=== PATIENT | female | born 1985 | race Caucasian/White ===

== ENCOUNTER → 2018-11-12 10:11 | Outpatient (CLI) | payer BC, SELFPAY | PROVIDERS: Family Provider Family Medicine; PCP Family Medicine; Visit Provider Physician Assistant | DX: J02.9 Acute pharyngitis, unspecified (principal) ==

== ENCOUNTER → 2018-12-09 11:19 | Outpatient (CLI) | payer BC, SELFPAY | PROVIDERS: Family Provider Family Medicine; PCP Family Medicine; Visit Provider Physician Assistant | DX: J02.9 Acute pharyngitis, unspecified (principal) | CPT/HCPCS: 87070 ==

== ENCOUNTER → 2019-12-07 12:42 | Outpatient (CLI) | payer BC, SELFPAY | PROVIDERS: Family Provider Family Medicine; PCP Family Medicine; Visit Provider Physician Assistant | DX: R30.0 Dysuria (principal) ==

== ENCOUNTER → 2020-05-20 12:10 | Outpatient (CLI) | payer BC, SELFPAY ==
--- NOTE | 2020-05-20 12:11 | DI.US.S_ITS ---
PROCEDURE: US PELVIC COMPLETE INDICATIONS: ABNORMAL UTERINE BLEEDING TECHNIQUE: Real-time scanning was performed of the pelvic organs, with image documentation. Additional endovaginal scanning was necessary due to incomplete visualization of the adnexal and endometrial structures by transabdominal scanning. COMPARISON: [facility], , PELVIC COMPLETE, 08/28/2016, 19:35. FINDINGS: Transabdominal scanning: Limited scanning through the kidneys shows no hydronephrosis. No pathologic free abdominal or pelvic fluid. Endovaginal scanning: Uterus: The anteverted uterus measures 10.1 x 5.1 x 5.7 cm. The endometrium measures 13 mm in combined thickness. Uterine echotexture is heterogeneous without focal uterine mass or fibroids. Multiple nabothian cysts are present within the cervix. Ovaries: Right ovary is not visualized on today's study. Left ovary measures 3.8 x 2.7 x 2.8 cm. There is a 2.4 cm physiologic cyst. No suspicious ovarian or adnexal mass lesions. IMPRESSION: 1. Pelvic ultrasound that acute sonographic abnormalities. 2. Heterogeneous uterine echotexture without focal masses or fibroids. Endometrial thickness measures within normal limits. 3. Nonvisualization of the right ovary. Unremarkable appearance of the left ovary/adnexa. Dictated by: Harsh Haas M.D. on 05/20/2020 at 13:58 Approved by: Harsh Haas M.D. on 05/20/2020 at 14:08
[2020-05-20 14:48] LABS: Add Manual Diff / Slide Review NO; Basophils Absolute Auto 0 /uL (0-100); Basophils Percent Auto 0.5 % (0-2); Eosinophils Absolute Auto 100 /uL (0-450); Eosinophils Percent Auto 1.4 % (2-4); Hematocrit 36.5 % (36-46); Hemoglobin 12.2 g/dL (12.0-16.0); Lymphocytes Absolute Auto 2800 /uL (1100-4500); Lymphocytes Percent Auto 32.6 % (25-40); Mean Corpuscular HGB Conc 33.4 % (30-36); Mean Corpuscular Hemoglobin 27.1 PG (26-34); Mean Corpuscular Volume 81.2 fL (80-100); Monocytes Absolute Auto 600 /uL (0-900); Monocytes Percent Auto 6.6 % (3-14); Neutrophils Absolute Auto 5100 /uL (1500-7000); Neutrophils Percent Auto 58.9 % (50-75); Platelet Count 352 X10^3/uL (150-400); Red Blood Cell Count 4.49 X10^6/uL (4.0-5.2); Red Cell Distribution Width 13.5 % (11.6-14.8); White Blood Cell Count 8.7 X10^3/uL (4.5-11.0)
[2020-05-20 16:06] LABS: Alanine Aminotransferase 28 IU/L (<35); Albumin 3.8 g/dL (3.5-5.0); Albumin Globulin Ratio 1.3 (1.0-2.8); Alkaline Phosphatase 98 U/L (38-126); Aspartate Aminotransferase 26 IU/L (14-36); Bilirubin Total 0.2 mg/dL (0.2-1.3); Blood Urea Nitrogen 12 mg/dL (7-17); Calcium 9.6 mg/dL (8.4-10.2); Carbon Dioxide 27 mmol/L (22-32); Chloride 105 mmol/L (98-107); Cholesterol 144 mg/dL (140-199); Estimated Glomerular Filt Rate > 60.0 mL/min (>60); Glucose 118 mg/dL (70-100); HDL Cholesterol 33 mg/dL (40-60); HEMOLYSIS < 15 (0-50); LDL Cholesterol Calculated 42 mg/dL (<100); Potassium 4.2 mmol/L (3.4-5.1); Sodium 137 mmol/L (137-145); Total Protein 6.8 g/dL (6.3-8.2); Triglycerides 343 mg/dL (35-150)
[2020-05-20 17:20] LABS: TSH w/ Reflex to FT4 1.49 uIU/mL (0.47-4.68)
== END ==
PROVIDERS: Family Provider Family Medicine; PCP Family Medicine; Referring Provider Family Medicine; Visit Provider Family Medicine
DX: N92.6 Irregular menstruation, unspecified (principal); N93.9 Abnormal uterine and vaginal bleeding, unspecified
CPT/HCPCS: 36415; 76830; 76856; 80053; 80061; 84443; 85025

== ENCOUNTER → 2021-01-30 09:02 | Outpatient (CLI) | payer BC, SELFPAY | PROVIDERS: Family Provider Family Medicine; PCP Family Medicine; Visit Provider Physician Assistant | DX: N34.3 Urethral syndrome, unspecified (principal) | CPT/HCPCS: 87077; 87086; 87186 ==

== ENCOUNTER → 2021-02-06 17:09 | Outpatient (CLI) | payer BC, SELFPAY ==
[2021-02-06 17:57] LABS: Appearance Urine UA CLEAR; Bilirubin Urine UA NEGATIVE (NEGATIVE); Color Urine UA YELLOW; Glucose Urine UA NEGATIVE (Negative); Ketones Urine UA NEGATIVE (NEGATIVE); Leukocyte Esterase Urine UA NEGATIVE (NEGATIVE); Nitrite Urine UA NEGATIVE (Negative); Occult Blood Urine UA TRACE-LYSED (Negative); Protein Urine UA NEGATIVE (Negative); Specific Gravity Urine UA 1.025 (1.000-1.035); Urobilinogen Urine UA 0.2 E.U./dL (0.2)
== END ==
PROVIDERS: Family Provider Family Medicine; PCP Family Medicine; Referring Provider Physician Assistant; Visit Provider Physician Assistant
DX: N30.01 Acute cystitis with hematuria (principal)
CPT/HCPCS: 81003

== ENCOUNTER → 2021-02-10 12:24 | Outpatient (CLI) | payer BC, SELFPAY ==
--- NOTE | 2021-02-10 12:30 | DI.CT.S_ITS ---
PROCEDURE: CT KIDNEY URETER BLADDER (KUB) INDICATIONS: suspect kidney stones with h/o kidney stones TECHNIQUE: Noncontrast 5 mm thick sections acquired from the diaphragms to the symphysis. 5 mm thick coronal and sagittal reformats were then performed. For radiation dose reduction, the following was used: automated exposure control, adjustment of mA and/or kV according to patient size. COMPARISON: [facility], CT, KIDNEY/ URETER/BLADDER, 11/27/2016, 13:34. FINDINGS: Image quality: Excellent. Lung bases: Lung bases are clear. Heart size is normal. Solid organs: Liver: The liver has no mass or intrahepatic biliary ductal dilatation. the liver demonstrates low density consistent with hepatic steatosis. Biliary: Status post cholecystectomy. Pancreas: The pancreas has no mass or ductal dilatation. There is no surrounding inflammation. Spleen: Normal size. There are no masses. Adrenals: No hypertrophy or nodules. Kidneys: No obstructive calculus or hydronephrosis. A nonobstructive calculus is seen in the left kidney inferior pole. No solid mass. No cystic mass. Peritoneum and bowel: The distal esophagus and stomach are normal. The small bowel has a normal caliber and appearance. The terminal ileum is normal. The large bowel has a normal caliber and appearance. The appendix is normal. No free fluid or air. Nodes and vessels: No retroperitoneal or mesenteric adenopathy by size criteria. Aorta and inferior vena cava are normal in size. Miscellaneous: No abdominal wall mass or hernia. PELVIS: Genitourinary: The bladder has no wall thickening or mass. No bladder calcifications. Miscellaneous: No inguinal hernias or adenopathy. Bones: No suspicious bony lesions. No vertebral body compression fractures. IMPRESSION: 1. No acute abnormality of the abdomen or pelvis. 2. No obstructive nephroureteral calculi. 3. Hepatic steatosis. Dictated by: Kel Ennis M.D. on 02/10/2021 at 13:34 Approved by: Kel Ennis M.D. on 02/10/2021 at 13:43
== END ==
PROVIDERS: Family Provider Family Medicine; PCP Family Medicine; Referring Provider Family Medicine; Visit Provider Family Medicine
DX: N20.0 Calculus of kidney (principal); Z87.442 Personal history of urinary calculi
CPT/HCPCS: 74176

== ENCOUNTER → 2021-02-18 12:44 | Outpatient (CLI) | payer BC, SELFPAY | PROVIDERS: Family Provider Family Medicine; PCP Family Medicine; Visit Provider Physician Assistant | DX: J02.9 Acute pharyngitis, unspecified (principal) | CPT/HCPCS: 87070 ==

== ENCOUNTER → 2021-09-30 09:21 | Outpatient (CLI) | payer BC, SELFPAY | PROVIDERS: Family Provider Family Medicine; PCP Family Medicine; Visit Provider Physician Assistant | DX: N34.3 Urethral syndrome, unspecified (principal) | CPT/HCPCS: 87077; 87086; 87186 ==

== ENCOUNTER 2022-12-26 09:55 | Emergency (ER) | payer BC, SELFPAY ==
[2022-12-26 10:27] VITALS: BP 167/105; PULSE 84; RESP 18; TEMP 36.7; O2SAT 98; BMI 44.2
--- NOTE | 2022-12-26 10:36 | DI.RAD.S_ITS ---
PROCEDURE: XR CHEST 1V INDICATIONS: chest pain TECHNIQUE: One view of the chest was acquired. COMPARISON: None. FINDINGS: Surgical changes and devices: None. Lungs and pleura: Lungs are clear. No pleural effusions or pneumothorax. Mediastinum: Mediastinal contours appear normal. Heart size is normal. Bones and chest wall: No suspicious bony lesions. Overlying soft tissues appear unremarkable. IMPRESSION: No acute cardiopulmonary pathology. Dictated by: Wali Randolph M.D. on 12/26/2022 at 10:52 Approved by: Wali Randolph M.D. on 12/26/2022 at 10:52
[2022-12-26 11:17] LABS: Add Manual Diff / Slide Review NO; Basophils Absolute Auto 100 /uL (0-100); Basophils Percent Auto 0.7 % (0-2); Eosinophils Absolute Auto 200 /uL (0-450); Eosinophils Percent Auto 1.6 % (2-4); Hematocrit 40.5 % (36-46); Lymphocytes Absolute Auto 2600 /uL (1100-4500); Lymphocytes Percent Auto 25.7 % (25-40); Mean Corpuscular HGB Conc 34.5 % (30-36); Mean Corpuscular Hemoglobin 27.9 PG (26-34); Mean Corpuscular Volume 80.8 fL (80-100); Monocytes Absolute Auto 500 /uL (0-900); Monocytes Percent Auto 4.7 % (3-14); Neutrophils Absolute Auto 6900 /uL (1500-7000); Neutrophils Percent Auto 67.3 % (50-75); Platelet Count 391 X10^3/uL (150-400); Red Blood Cell Count 5.02 X10^6/uL (4.0-5.2); Red Cell Distribution Width 13.5 % (11.6-14.8); White Blood Cell Count 10.2 X10^3/uL (4.5-11.0)
[2022-12-26 11:29] LABS: Alanine Aminotransferase 42 IU/L (<35); Albumin 4.2 g/dL (3.5-5.0); Albumin Globulin Ratio 1.1 (1.0-2.8); Alkaline Phosphatase 115 U/L (38-126); Aspartate Aminotransferase 30 IU/L (14-36); Bilirubin Total 0.3 mg/dL (0.2-1.3); Blood Urea Nitrogen 9 mg/dL (7-17); Calcium 9.1 mg/dL (8.4-10.2); Carbon Dioxide 28 mmol/L (22-32); Chloride 101 mmol/L (98-107); Creatine Kinase 64 U/L (30-135); Estimated Glomerular Filt Rate > 60 mL/min (>60); Globulin 3.9 g/dL (1.7-4.1); Glucose 106 mg/dL (70-100); HEMOLYSIS < 15 (0-50); Lipase 73 U/L (23-300); Magnesium 2.1 mg/dL (1.6-2.3); Potassium 3.9 mmol/L (3.4-5.1); Sodium 138 mmol/L (137-145); Total Protein 8.1 g/dL (6.3-8.2)
[2022-12-26 11:30] LABS: INR 1.1 (0.9-1.3); Prothrombin Time 12.1 SECONDS (10.1-12.7)
[2022-12-26 11:33] LABS: PTT Partial Thromboplastin Tim 35 SECONDS (26-36)
[2022-12-26 11:41] LABS: Troponin I < 0.012 ng/mL (0.01-0.034)
[2022-12-26 12:50] VITALS: BP 180/111; PULSE 81; RESP 16; O2SAT 97
[2022-12-26 13:49] VITALS: PULSE 81; RESP 15; O2SAT 99
--- NOTE | 2022-12-26 13:58 | PC.NURSE ---
pt states she has been having migraines for about one year and pain that started 7 years ago in her arms, holding her baby that traveled up her arm and began to be severe neck pain one year ago. she was seeing a chiropractor yesterday and her BP was 160/102 and she was advised that if her BP did not come down she should go to the ER. pt states she has been having palpitation for one week and feeling funny since her last migraine on Saturday.
[2022-12-26 14:00] VITALS: BP 148/91; PULSE 80; RESP 17; O2SAT 100
[2022-12-26 14:30] VITALS: BP 158/94; PULSE 78; RESP 12; O2SAT 98
[2022-12-26] MEDS: KETOROLAC 10 MG TABLET PO (14:45)
[2022-12-26] MEDS: ACETAMINOPHEN 325 MG TABLET 975 MG PO (14:45)
[2022-12-26 15:00] VITALS: BP 166/96; PULSE 82; RESP 15; O2SAT 98
--- NOTE | 2022-12-26 15:15 | ED_ITS ---
HPI - General Adult <Deborah Greene, [facility] - Last Filed: 12/26/22 15:21> General Chief complaint: Hypertension Stated complaint: high BP T-7 Time Seen by Provider: 12/26/22 14:09 Source: patient Mode of arrival: Ambulatory History of Present Illness HPI narrative: This is a 37-year-old female presents to the emergency department complaining history of 1 year of chronic neck pain and left arm pain and states that she has left-sided neck, shoulder and muscular tension which has given her a headache for the last 3 days. She states that this flares up occasionally for her, she states that she is taking Tylenol ibuprofen, has used Flexeril in the past and it has been helpful for her. She states that she is had tendinitis of her wrist and arm from holding her baby in the past and this was exacerbated with neck pain. She denies any recent trauma, denies history of IV drug use, denies dizziness, lightheadedness, weakness, urinary continence retention, urinary frequency or urgency, mobility changes, sensation deficit or other. She complains of left trapezius tenderness and strain. Denies any numbness or tingling, denies any shooting pain Related Data Previous Rx's Medication Instructions Recorded phenazopyridine 100 mg tablet 100 mg PO TID PRN pain #10 tabs 08/10/20 fluconazole 100 mg tablet See Rx Instructions PO DAILY #15 02/17/21 tabs tamsulosin 0.4 mg capsule See Rx Instructions .Route 02/27/21 .COMPLEX #20 caps metformin 1,000 mg tablet See Rx Instructions .Route 10/27/21 .COMPLEX #180 tabs cyclobenzaprine 5 mg tablet See Rx Instructions .Route 07/26/22 .COMPLEX #30 tabs cyclobenzaprine 5 mg tablet 5 mg PO BID #14 tabs 12/26/22 lidocaine 5 % topical patch 1 patch topical DAILY PRN pain #30 12/26/22 (Lidoderm) ea propranolol 10 mg tablet 10 mg PO TID PRN high blood 12/26/22 pressure/stress #30 tabs Allergies Allergy/AdvReac Type Severity Reaction Status Date / Time morphine [MORPHINE] Allergy Severe SOB Verified 08/26/22 16:02 Sulfa (Sulfonamide Allergy Mild Hives Verified 08/26/22 16:02 Antibiotics) [SULFA (SULFONAMIDE ANTIBIOTICS)] Review of Systems <YVONNE Mojica - Last Filed: 12/26/22 15:21> Review of Systems ROS Unobtainable: All systems reviewed & are unremarkable except as noted in HPI and below Patient History <YVONNE Mojica - Last Filed: 12/26/22 15:21> Medical History Abnormal uterine bleeding Adenomyosis Ductal candidiasis of breast Irregular menses Irritable bowel syndrome with constipation Kidney stone Renal colic on left side UTI (urinary tract infection) Surgical History History of hysterectomy for benign disease (~10/2020) History of third molar tooth extraction History of tonsillectomy Status post delivery (10/22/11) Status post delivery (10/07/09) Status post delivery (08/01/15) Status post knee surgery Family History Grandmother Gallbladder attack Mother Gallbladder attack Social History Smoking Status: Never smoker Smoking Status: Never smoker alcohol intake frequency: holidays/special occasions only Substance Use Type: does not use Exam <YVONNE Mojica - Last Filed: 12/26/22 15:21> Initial Vital Signs Initial Vital Signs: Vital Signs Temperature 98.1 F 12/26/22 10:27 Pulse Rate 84 12/26/22 10:27 Respiratory Rate 18 12/26/22 10:27 Blood Pressure 167/105 H 12/26/22 10:27 Pulse Oximetry 98 12/26/22 10:27 Oxygen Delivery Method 12/26/22 10:27 <Farooq Cardoso MD - Last Filed: 01/01/23 02:08> Initial Vital Signs Initial Vital Signs: Vital Signs Temperature 98.1 F 12/26/22 10:27 Pulse Rate 84 12/26/22 10:27 Respiratory Rate 18 12/26/22 10:27 Blood Pressure 167/105 H 12/26/22 10:27 Pulse Oximetry 98 12/26/22 10:27 Oxygen Delivery Method 12/26/22 10:27 Course <YVONNE Mojica - Last Filed: 12/26/22 15:21> Orders Ordered: Discontinued Medications Acetaminophen (Acetaminophen 325 Mg Tablet) 975 mg PO NOW ONE Stop: 12/26/22 14:34 Last Admin: 12/26/22 14:45 Dose: 975 mg Documented By: NR Cyclobenzaprine HCl (Cyclobenzaprine 10 Mg Tablet) 5 mg PO NOW ONE Stop: 12/26/22 14:34 Last Admin: 12/26/22 14:49 Dose: Not Given Documented By: NR Ketorolac Tromethamine (Ketorolac 10 Mg Tablet) 10 mg PO NOW ONE Stop: 12/26/22 14:34 Last Admin: 12/26/22 14:45 Dose: 10 mg Documented By: NR Lidocaine (Lidocaine Patch 1 Each Adh..Patch) 1 each TOP NOW ONE Stop: 12/26/22 14:34 Last Admin: 12/26/22 14:49 Dose: Not Given Documented By: NR Ondansetron HCl (Ondansetron 4 Mg Odt) 4 mg SL NOW ONE Stop: 12/26/22 14:34 Last Admin: 12/26/22 14:49 Dose: Not Given Documented By: NR Vital Signs Vital signs: Vital Signs - 8 hr 12/26/22 10:27 12/26/22 12:50 12/26/22 13:49 Temperature 98.1 F Pulse Rate 84 81 81 Respiratory Rate 18 16 15 Blood Pressure 167/105 H 180/111 H Pulse Oximetry 98 97 99 Oxygen Delivery Method Room Air Room Air 12/26/22 14:00 12/26/22 14:00 12/26/22 14:30 Temperature Pulse Rate 80 Respiratory Rate 17 Blood Pressure 148/91 H 158/94 H Pulse Oximetry 100 Oxygen Delivery Method 12/26/22 14:30 Temperature Pulse Rate 78 Respiratory Rate 12 Blood Pressure Pulse Oximetry 98 Oxygen Delivery Method <Farooq Cardoso MD - Last Filed: 01/01/23 02:08> Orders Ordered: Discontinued Medications Acetaminophen (Acetaminophen 325 Mg Tablet) 975 mg PO NOW ONE Stop: 12/26/22 14:34 Last Admin: 12/26/22 14:45 Dose: 975 mg Documented By: NR Cyclobenzaprine HCl (Cyclobenzaprine 10 Mg Tablet) 5 mg PO NOW ONE Stop: 12/26/22 14:34 Last Admin: 12/26/22 14:49 Dose: Not Given Documented By: NR Ketorolac Tromethamine (Ketorolac 10 Mg Tablet) 10 mg PO NOW ONE Stop: 12/26/22 14:34 Last Admin: 12/26/22 14:45 Dose: 10 mg Documented By: NR Lidocaine (Lidocaine Patch 1 Each Adh..Patch) 1 each TOP NOW ONE Stop: 12/26/22 14:34 Last Admin: 12/26/22 14:49 Dose: Not Given Documented By: NR Ondansetron HCl (Ondansetron 4 Mg Odt) 4 mg SL NOW ONE Stop: 12/26/22 14:34 Last Admin: 12/26/22 14:49 Dose: Not Given Documented By: NR Vital Signs Vital signs: Vital Signs - 8 hr 12/26/22 10:27 12/26/22 12:50 12/26/22 13:49 Temperature 98.1 F Pulse Rate 84 81 81 Respiratory Rate 18 16 15 Blood Pressure 167/105 H 180/111 H Pulse Oximetry 98 97 99 Oxygen Delivery Method Room Air Room Air 12/26/22 14:00 12/26/22 14:00 12/26/22 14:30 Temperature Pulse Rate 80 Respiratory Rate 17 Blood Pressure 148/91 H 158/94 H Pulse Oximetry 100 Oxygen Delivery Method 12/26/22 14:30 Temperature Pulse Rate 78 Respiratory Rate 12 Blood Pressure Pulse Oximetry 98 Oxygen Delivery Method Medical Decision Making <AALIYAH MojicaP - Last Filed: 12/26/22 15:21> Lab Data 12/26/22 11:00 12/26/22 11:00 Labs: Lab Results 12/26/22 12/26/22 12/26/22 Range/Units 11:00 11:00 11:00 WBC 10.2 (4.5-11.0) X10^3/uL RBC 5.02 (4.0-5.2) X10^6/uL Hgb 14.0 (12.0-16.0) g/dL Hct 40.5 (36-46) % MCV 80.8 (80-100) fL MCH 27.9 (26-34) PG MCHC 34.5 (30-36) % RDW 13.5 (11.6-14.8) % Plt Count 391 (150-400) X10^3/uL Neut % (Auto) 67.3 (50-75) % Lymph % (Auto) 25.7 (25-40) % [place] % (Auto) 4.7 (3-14) % Eos % (Auto) 1.6 L (2-4) % Baso % (Auto) 0.7 (0-2) % Neut # (Auto) 6900 (7398-0604) /uL Lymph # (Auto) 2600 (2886-9157) /uL [place] # (Auto) 500 (0-900) /uL Eos # (Auto) 200 (0-450) /uL Baso # (Auto) 100 (0-100) /uL PT 12.1 (10.1-12.7) SECONDS INR 1.1 (0.9-1.3) APTT 35 (26-36) SECONDS Sodium 138 (137-145) mmol/L Potassium 3.9 (3.4-5.1) mmol/L Chloride 101 (98-107) mmol/L Carbon Dioxide 28 (22-32) mmol/L BUN 9 (7-17) mg/dL Creatinine 0.60 (0.52-1.04) mg/dL Estimated GFR > 60 (>60) mL/min BUN/Creatinine Ratio 15.0 (6-22) Glucose 106 H (70-100) mg/dL Calcium 9.1 (8.4-10.2) mg/dL Magnesium 2.1 (1.6-2.3) mg/dL Total Bilirubin 0.3 (0.2-1.3) mg/dL AST 30 (14-36) IU/L ALT 42 H (<35) IU/L Alkaline Phosphatase 115 (38-126) U/L Total Creatine Kinase 64 (30-135) U/L CK-MB (CK-2) TNP CK-MB (CK-2) Rel Index TNP Troponin I < 0.012 (0.01-0.034) ng/mL Total Protein 8.1 (6.3-8.2) g/dL Albumin 4.2 (3.5-5.0) g/dL Globulin 3.9 (1.7-4.1) g/dL Albumin/Globulin Ratio 1.1 (1.0-2.8) Lipase 73 (23-300) U/L MDM Narrative Medical decision making narrative: Chief Complaint: Neck pain and shoulder pain This is a 37-year-old female presents to the emergency department complaining history of 1 year of chronic neck pain and left arm pain and states that she has left-sided neck, shoulder and muscular tension which has given her a headache for the last 3 Differential diagnoses include but are not limited to: Degenerative disc disease, muscle strain/sprain, disc herniation/injury, tendinitis, tension headache, epidural hematoma I have reviewed the patient's vital signs and nursing notes as well as prior records if available. Pertinent lab findings reviewed: CMP and CBC are unremarkable today Pertinent Imaging reviewed: No imaging indicated patient is without trauma On exam of this patient, her symptoms are mild, her pain was rated at a 6 and she had palpable tension and tenderness to the left trapezius. No cervical tenderness to palpation, she is without radiculopathy symptoms. Discussed treatment plans and follow-up, she has not seen her PCP for her symptoms, states that she struggled with depression, states she is not taking anything for her mood, states that her pain has been getting worse and coming and going over the last year. She is without recent trauma or any trauma contributing to this. She was at her chiropractor yesterday with elevated blood pressure and told that she needs to follow-up on this so she came in today for this. Today her initial blood pressure was 180 systolic however on repeat it was 148 systolic. There is a mild component of hypertension that is still present, repeat blood pressure is 158 systolic. For this I prescribed for her propanolol tongue mg as needed as patient states that this is likely secondary to stress and I think her elevated BP today is related to pain. She declined wanting a steroid, she may benefit from injectable steroids in the future however I recommend that she follow-up with her PCP for referral to physical therapy and to discuss her mood, blood pressure and chronic neck pain. She was given a prescription muscle relaxers, encouraged to use Tylenol and ibuprofen otherwise for her pain and will follow up accordingly. She denies any urinary symptoms Patient's symptoms improved over duration of stay with above-stated therapies. Social considerations that may affect disposition: none Questions are addressed and there is agreement with the plan and for follow-up. Patient is appropriate for outpatient management. MIPS: This encounter doesn't have any diagnosis' associated with MIPS criteria. <Farooq Cardoso MD - Last Filed: 01/01/23 02:08> Lab Data Labs: Lab Results 12/26/22 12/26/22 12/26/22 Range/Units 11:00 11:00 11:00 WBC 10.2 (4.5-11.0) X10^3/uL RBC 5.02 (4.0-5.2) X10^6/uL Hgb 14.0 (12.0-16.0) g/dL Hct 40.5 (36-46) % MCV 80.8 (80-100) fL MCH 27.9 (26-34) PG MCHC 34.5 (30-36) % RDW 13.5 (11.6-14.8) % Plt Count 391 (150-400) X10^3/uL Neut % (Auto) 67.3 (50-75) % Lymph % (Auto) 25.7 (25-40) % [place] % (Auto) 4.7 (3-14) % Eos % (Auto) 1.6 L (2-4) % Baso % (Auto) 0.7 (0-2) % Neut # (Auto) 6900 (7126-3100) /uL Lymph # (Auto) 2600 (3533-1562) /uL [place] # (Auto) 500 (0-900) /uL Eos # (Auto) 200 (0-450) /uL Baso # (Auto) 100 (0-100) /uL PT 12.1 (10.1-12.7) SECONDS INR 1.1 (0.9-1.3) APTT 35 (26-36) SECONDS Sodium 138 (137-145) mmol/L Potassium 3.9 (3.4-5.1) mmol/L Chloride 101 (98-107) mmol/L Carbon Dioxide 28 (22-32) mmol/L BUN 9 (7-17) mg/dL Creatinine 0.60 (0.52-1.04) mg/dL Estimated GFR > 60 (>60) mL/min BUN/Creatinine Ratio 15.0 (6-22) Glucose 106 H (70-100) mg/dL Calcium 9.1 (8.4-10.2) mg/dL Magnesium 2.1 (1.6-2.3) mg/dL Total Bilirubin 0.3 (0.2-1.3) mg/dL AST 30 (14-36) IU/L ALT 42 H (<35) IU/L Alkaline Phosphatase 115 (38-126) U/L Total Creatine Kinase 64 (30-135) U/L CK-MB (CK-2) TNP CK-MB (CK-2) Rel Index TNP Troponin I < 0.012 (0.01-0.034) ng/mL Total Protein 8.1 (6.3-8.2) g/dL Albumin 4.2 (3.5-5.0) g/dL Globulin 3.9 (1.7-4.1) g/dL Albumin/Globulin Ratio 1.1 (1.0-2.8) Lipase 73 (23-300) U/L Discharge Plan Departure Patient Disposition: Home Clinical Impression: Chronic neck and back pain, Strain of cervical portion of left trapezius muscle Headache Qualifiers: Headache type: tension-type Headache chronicity pattern: episodic headache Intractability: not intractable Qualified Code(s): G44.219 - Episodic tension- type headache, not intractable Instructions: Tension Headache, Chronic Neck Pain, DI for Neck Sprain, DI for Neck Pain Activity Restrictions/Additional Instructions: *You have been diagnosed with neck pain related to chronic neck pain, likely have an acute muscle strain, this may be stress related. Please use ibuprofen 800 mg every 8 hours with 975 mg of Tylenol and food. Please use a muscle relaxer 3 times daily as needed, that will make you sleepy and it is not safe to drive on. You something topical like lidocaine patches or the patches he bought. Please schedule follow-up appointment with your PCP for a referral to physical therapy, please discuss your blood pressure which is likely elevated related to your pain today however on recheck it was still elevated. I have given you propanolol to use as needed for anxiety/elevated blood pressure, I wan t you to pair that with deep breathing, gentle massage, heat, and your other medications to treat your pain. Please discuss your mood, your symptoms, and hopefully this will improve for you. Thank you for your patients today, I hope you feel better soon. *What to do: *Please continue to take your regular medications as directed. [ x] New medication prescriptions sent to your pharmacy: [[facility] [place]] [ ] New medication written as a paper prescription [ ] No new medications given *Please follow up with your primary care provider in 2-3 days, call for an lenora ointment. Let them know you were seen in the Emergency Department and that we asked that you be seen for follow-up. We will electronically transmit a record of today's note if your PCP is in our system *If you do not have a primary care provider please contact [phone] to establish care with one of the [facility] primary care providers. *Return to Emergency Department if you should have any new, worsening, or concerning symptoms, such as [fever greater than 101F, chills, worsening pain, persistent vomiting or other bothersome symptoms]. Prescriptions: New cyclobenzaprine 5 mg tablet 5 mg PO BID Qty: 14 0RF lidocaine [Lidoderm] 5 % adhesive patch,medicated 1 patch topical DAILY PRN (Reason: pain) Qty: 30 0RF Rx Instructions: leave on most painful area for up to 12 hrs propranolol 10 mg tablet 10 mg PO TID PRN (Reason: high blood pressure/stress) Qty: 30 0RF No Action fluconazole 100 mg tablet See Rx Instructions PO DAILY Qty: 15 0RF Rx Instructions: 2 tabs on day 1 then 1 tab daily thereafter; tamsulosin 0.4 mg capsule See Rx Instructions .ROUTE .COMPLEX Qty: 20 1RF Dose Instruction: take 1 capsule by mouth at bedtime Rx Instructions: take 1 capsule by mouth at bedtime metformin 1,000 mg tablet See Rx Instructions .ROUTE .COMPLEX Qty: 180 2RF Dose Instruction: take 1 tablet by mouth twice a day with food Rx Instructions: take 1 tablet by mouth twice a day with food cyclobenzaprine 5 mg tablet See Rx Instructions .ROUTE .COMPLEX Qty: 30 0RF Dose Instruction: take 1 tablet by mouth three times a day if needed for muscle spasm Rx Instructions: take 1 tablet by mouth three times a day if needed for muscle spasm phenazopyridine 100 mg tablet 100 mg PO TID PRN (Reason: pain) Qty: 10 0RF Referrals: [facility] [Provider Group] [facility] [Outside] [facility] [Outside] Heather Reyes DO [Primary Care Provider] - Stand Alone Forms: Patient Portal/API <Farooq Cardoso MD - Last Filed: 01/01/23 02:08> Cosign ED Attending Cosignature Attestation: I was immediately available in the department for consultation. ?This documentation has been reviewed and I agree with assessment and plan. Supervised by Farooq Cardoso MD
== END 2022-12-26 15:27 | disposition home or self-care (01) ==
PROVIDERS: Emergency Medicine; Emergency Provider Nurse Practitioner Critical Care Medicine; Family Provider Family Medicine; PCP Family Medicine
DX: S16.1XXA Strain of muscle, fascia and tendon at neck level, initial encounter (principal); G44.219 Episodic tension-type headache, not intractable; R07.9 Chest pain, unspecified
CPT/HCPCS: 71045; 80053; 82550; 83690; 83735; 84484; 85025; 85610; 85730; 93005; 93010; 99283; 99284

== ENCOUNTER → 2023-01-16 17:20 | Outpatient (CLI) | payer BC, SELFPAY | PROVIDERS: Family Provider Family Medicine; PCP Family Medicine; Visit Provider Nurse Practitioner Family | DX: R31.9 Hematuria, unspecified (principal) | CPT/HCPCS: 87086 ==

== ENCOUNTER → 2023-01-24 09:22 | Outpatient (CLI) | payer BC, SELFPAY | PROVIDERS: Family Provider Family Medicine; PCP Family Medicine; Visit Provider Nurse Practitioner Family | DX: R30.0 Dysuria (principal) | CPT/HCPCS: 87086; 87210 ==

== ENCOUNTER → 2023-02-09 08:40 | Outpatient (CLI) | payer BC, SELFPAY ==
[2023-02-09 10:35] LABS: BUN Creatinine Ratio 18.5 (6-22); Blood Urea Nitrogen 12 mg/dL (7-17); Calcium 9.1 mg/dL (8.4-10.2); Carbon Dioxide 27 mmol/L (22-32); Chloride 104 mmol/L (98-107); Estimated Glomerular Filt Rate > 60 mL/min (>60); Glucose 119 mg/dL (70-100); HEMOLYSIS < 15 (0-50); Potassium 4.4 mmol/L (3.4-5.1); Sodium 137 mmol/L (137-145)
== END ==
PROVIDERS: Family Provider Family Medicine; PCP Family Medicine; Referring Provider Nurse Practitioner Family; Visit Provider Nurse Practitioner Family
DX: I10 Essential (primary) hypertension (principal)
CPT/HCPCS: 36415; 80048

== ENCOUNTER → 2023-04-11 15:07 | Outpatient (CLI) | payer BC, SELFPAY | PROVIDERS: Family Provider Family Medicine; PCP Family Medicine; Referring Provider Family Medicine; Visit Provider Family Medicine | DX: R00.2 Palpitations (principal) | CPT/HCPCS: 93246 ==

== ENCOUNTER → 2023-10-11 13:59 | Outpatient (CLI) | payer BC, SELFPAY | PROVIDERS: Family Provider Family Medicine; PCP Family Medicine; Visit Provider Nurse Practitioner Family | DX: R30.0 Dysuria (principal) | CPT/HCPCS: 87077; 87086; 87186 ==

== ENCOUNTER → 2024-02-24 10:49 | Outpatient (CLI) | payer OTHER, SELFPAY ==
[2024-02-24 11:24] LABS: Hematocrit 39.7 % (36-46); Hemoglobin 13.6 g/dL (12.0-16.0); Mean Corpuscular HGB Conc 34.2 % (30-36); Mean Corpuscular Hemoglobin 27.7 PG (26-34); Platelet Count 381 X10^3/uL (150-400); White Blood Cell Count 10.6 X10^3/uL (4.5-11.0)
[2024-02-24 11:41] LABS: Alanine Aminotransferase 36 IU/L (<35); Albumin 4.5 g/dL (3.5-5.0); Albumin Globulin Ratio 1.2 (1.0-2.8); Alkaline Phosphatase 98 U/L (38-126); Aspartate Aminotransferase 29 IU/L (14-36); BUN Creatinine Ratio 16.9 (6-22); Bilirubin Total 0.4 mg/dL (0.2-1.3); Blood Urea Nitrogen 11 mg/dL (7-17); Calcium 9.5 mg/dL (8.4-10.2); Carbon Dioxide 26 mmol/L (22-32); Chloride 105 mmol/L (98-107); Cholesterol 152 mg/dL (140-199); Estimated Glomerular Filt Rate > 60 mL/min (>60); Globulin 3.7 g/dL (1.7-4.1); Glucose 110 mg/dL (70-100); HDL Cholesterol 39 mg/dL (40-60); HEMOLYSIS < 15 (0-50); LDL Cholesterol Calculated 70 mg/dL (<100); Potassium 4.4 mmol/L (3.4-5.1); Sodium 138 mmol/L (137-145); Total Protein 8.2 g/dL (6.3-8.2); Triglycerides 216 mg/dL (35-150)
[2024-02-24 11:57] LABS: Free T3, Triiodothyronine Free 4.87 pg/mL (2.77-5.27)
[2024-02-24 12:11] LABS: Thyroid Stimulating Hormone 1.57 uIU/mL (0.47-4.68)
[2024-02-24 12:26] LABS: HIV 1 & 2 Ab/Ag 4th Gen Combo NEGATIVE (NEGATIVE); Hep C Virus Ab w/Reflex Quant NEGATIVE s/c (NEGATIVE)
[2024-02-24 17:42] LABS: Creatinine Urine Random 255.1 mg/dL
[2024-02-24 17:47] LABS: Microalbumi Creatinin Ratio Ur 37.6 ug/mg CR (<30); Microalbumin Urine Random 9.6 mg/dL (0-1.6)
== END ==
LOC: LAB 10:52
PROVIDERS: Family Provider Family Medicine; PCP Nurse Practitioner; Referring Provider Nurse Practitioner; Visit Provider Nurse Practitioner
DX: Z00.00 Encounter for general adult medical examination without abnormal findings (principal); Z11.59 Encounter for screening for other viral diseases; Z11.4 Encounter for screening for human immunodeficiency virus [HIV]
CPT/HCPCS: 36415; 80053; 80061; 82043; 82570; 84439; 84443; 84481; 85027; 86803; 87389

== ENCOUNTER → 2024-03-23 07:50 | Outpatient (CLI) | payer OTHER, SELFPAY ==
--- NOTE | 2024-03-23 07:52 | DI.ECHO.S_ITS ---
[facility]+ [facility] : : [address] : : [place] : : [id number] : : Phone: [phone] Echocardiogram Report + + :Name: JENNY HENDERSON Study Date: 03/23/2024 Height: 63 in : :[facility] ReadingLocation: Weight: 257 lb : : Gender: Female BSA: 2.2 m2 : :: 1985 Age: 39 yrs BP: 134/93 mmHg: :Reason For Study: HYPERTENSION : :Ordering Physician: JD, : :NAFISA Performed By: Jatinder Wheatley : :Referring: NAFISA MILES : + + Interpretation Summary The study quality was technically difficult. The ejection fraction is estimated to be 55-60%. Diastolic parameters suggest probable normal left ventricular diastolic function and normal filling pressures. The right ventricular systolic function is normal. No significant valvular abnormality. The inferior vena cava was not visualized. Procedure: A two-dimensional transthoracic echocardiogram with color flow and Doppler was performed. The study quality was technically difficult. There is no prior echocardiogram noted for this patient. The patient was in normal sinus rhythm during the exam. Left Ventricle: The left ventricle is normal in size and wall thickness. The ejection fraction is estimated to be 55-60%. There are no obvious focal wall motion abnormalities noted but poor endocardial definition reduces the sensitivity for the detection of such. Diastolic parameters suggest probable normal left ventricular diastolic function and normal filling pressures. Right Ventricle: The right ventricle is normal size. The right ventricular systolic function is normal. Atria: The left atrial size is normal. Right atrial size is normal. The interatrial septum grossly appears intact with no obvious evidence for an atrial septal defect. Mitral Valve: The mitral valve is normal in structure and function. There is no mitral valve stenosis. There is no mitral regurgitation noted. Aortic Valve: The aortic valve is not well visualized. The aortic valve is grossly normal. There is no aortic valve stenosis. No aortic regurgitation is present. Tricuspid Valve: The tricuspid valve is normal in structure and function. There is no tricuspid stenosis. No tricuspid regurgitation. Pulmonic Valve: The pulmonic valve is not well visualized. There is no pulmonic valvular stenosis. There is no pulmonic valvular regurgitation. Great Vessels: The aortic root is normal size. The ascending aorta could not be visualized. The inferior vena cava was not visualized. Pericardium/ Pleura There is no pericardial effusion. There is no pleural effusion. MMode/2D Measurements & Calculations LVIDd: 3.7 cm LVOT diam: 2.5 cm LVIDs: 2.3 cm Ao root diam: 3.2 cm FS: 39.0 % Ao Arch Diam (Prox Trans): 2.0 cm IVSd: 1.1 cm LVPWd: 0.91 cm LV marin. diameter/BSA (cm/m^2): 1.7 LV sys. diameter/BSA (cm/m^2): 1.1 LA A2 area: 15.0 cm2 RA long axis: 4.8 cm LA A4 area: 21.1 cm2 RA area: 14.0 cm2 LA length (vol): 5.4 cm RA vol: 34.8 ml LA vol: 49.9 ml RA : 16.2 ml/m2 LA vol index: 23.2 ml/m2 RVD1 (basal): 3.7 cm RVD2 (mid): 2.7 cm TAPSE: 1.7 cm Doppler Measurements & Calculations Ao V2 max: 129.2 cm/sec LVOT Max Reji: 122.7 cm/sec Ao V2 mean: 95.9 cm/sec LV V1 max P.0 mmHg Ao max P.7 mmHg LV V1 VTI: 24.9 cm Ao mean P.0 mmHg AALIYAH(I,D): 4.1 cm2 Ao V2 VTI: 28.5 cm AALIYAH(V,D): 4.5 cm2 sev ratio: 0.88 AALIYAH indexed to BSA (cm^2/m^2): 1.9 MV E max reji: 84.2 cm/sec PA V2 max: 93.5 cm/sec MV A max reji: 48.1 cm/sec PA V2 mean: 62.5 cm/sec MV E/A: 1.8 PA mean P.8 mmHg Med Peak E' Reji: 9.1 cm/sec PA pr(Accel): 25.9 mmHg E/E' med: 9.2 Lat Peak E' Reji: 12.4 cm/sec E/E' lat: 6.8 E/e' average: 8.0 MV dec time: 0.21 sec SV(LVOT): 117.9 ml Reading Physician:TATIANA
== END ==
PROVIDERS: Family Provider Family Medicine; PCP Nurse Practitioner; Referring Provider Nurse Practitioner; Visit Provider Nurse Practitioner
DX: I10 Essential (primary) hypertension (principal)
CPT/HCPCS: 93005; 93010; 93306

== ENCOUNTER 2024-08-31 23:08 | Emergency (ER) | payer OTHER, SELFPAY ==
[2024-08-31 23:21] VITALS: BP 173/93; PULSE 97; RESP 18; TEMP 36.8; O2SAT 98; BMI 44.2
[2024-08-31 23:40] LABS: Bilirubin Urine UA NEGATIVE (NEGATIVE); Glucose Urine UA NEGATIVE (Negative); Ketones Urine UA NEGATIVE (NEGATIVE); Leukocyte Esterase Urine UA 2+ (NEGATIVE); Nitrite Urine UA NEGATIVE (Negative); Occult Blood Urine UA 3+ (Negative); Protein Urine UA TRACE (Negative); Urobilinogen Urine UA 0.2 E.U./dL (0.2)
[2024-08-31 23:41] LABS: Appearance Urine UA TURBID; Color Urine UA RED; RBC Urine >100/HPF (0-5/HPF); Urine Volume 10mL (spun)
[2024-08-31 23:42] LABS: Bacteria Urine Moderate (10-30); Culture Indicated Urine Specimen Cultured; Squamous Epithelial Cell Urine 0-1 /HPF (0-5/HPF); WBC Urine 5-10/HPF (0-5/HPF)
[2024-09-01] MEDS: cephALEXin 250 MG CAPSULE 500 MG PO (00:03)
--- NOTE | 2024-09-01 00:07 | ED_ITS ---
HPI - General Adult General Chief complaint: Urogenital-Female Stated complaint: peeing blood Time Seen by Provider: 08/31/24 23:17 Source: patient Mode of arrival: Ambulatory History of Present Illness HPI narrative: 39-year-old female who is here for evaluation of urinating blood. She also states she was having urinary frequency and urgency. She did have urinary tract infection about 1 year ago that presented very similar. No fevers. No vomiting. She has had hysterectomy. No blood in stool. No vaginal bleeding. No back discomfort. Symptoms started earlier today. Related Data Previous Rx's Medication Instructions Recorded hydroxyzine pamoate 25 mg capsule 25 mg PO BID PRN anxiety #100 caps 01/02/23 lisinopril 10 mg tablet 15 mg (1.5 x 10 mg) PO DAILY #135 04/27/24 tabs propranolol 10 mg tablet 10 mg PO DAILY PRN anxiety #90 tabs 04/27/24 fluconazole 150 mg tablet 150 mg PO Q3D 2 doses #2 tabs 05/25/24 cyclobenzaprine 5 mg tablet 5 mg PO BID #20 tabs 06/23/24 bupropion HCl 150 mg 24 hr tablet, 150 mg PO TID #270 tabs 07/29/24 extended release cephalexin 500 mg capsule 500 mg PO BID 7 days #14 caps 08/31/24 Allergies Allergy/AdvReac Type Severity Reaction Status Date / Time morphine [MORPHINE] Allergy Severe SOB Verified 04/27/24 09:31 Sulfa (Sulfonamide Allergy Mild Hives Verified 04/27/24 09:31 Antibiotics) [SULFA (SULFONAMIDE ANTIBIOTICS)] Review of Systems Review of Systems Narrative: See HPI Patient History Medical History Chicken pox (~1993) Myelofibrosis (~2020) Pituitary adenoma (~2015) HTN (hypertension) (~12/2022) Hyperlipidemia depression (10/24/15) History of kidney stones Microalbuminuria ADHD (~1997) Depression Anxiety UTI (urinary tract infection) Irritable bowel syndrome with constipation Adenomyosis Abnormal uterine bleeding Irregular menses Renal colic on left side Kidney stone Ductal candidiasis of breast Surgical History (Updated 04/27/24 @ 10:01 by YVONNE Diamond) History of hysterectomy Anesthesia History of hysterectomy for benign disease (~10/2020) History of tonsillectomy (~1996) Status post knee surgery History of third molar tooth extraction Status post delivery (08/01/15) Status post delivery (10/07/09) Status post delivery (10/22/11) Family History Grandmother Gallbladder attack Mother Gallbladder attack Diabetes mellitus Hypertension Mental health problem Father Diabetes mellitus Hypertension Mental health problem Sister Mental health problem Grandfather Cancer Grandmother Diabetes mellitus Liver failure Social History Smoking Status: Never smoker alcohol intake: current (two drinks per year ) substance use type: does not use Smoking Status: Never smoker alcohol intake frequency: holidays/special occasions only Substance Use Type: does not use Exam Initial Vital Signs Initial Vital Signs: Vital Signs Temperature 98.3 F 08/31/24 23:21 Pulse Rate 97 H 08/31/24 23:21 Respiratory Rate 18 08/31/24 23:21 Blood Pressure 173/93 H 08/31/24 23:21 Pulse Oximetry 98 08/31/24 23:21 Oxygen Delivery Method Room Air 08/31/24 23:21 Const General: cooperative, comfortable and No ill appearing Resp Effort & Inspection: normal respiratory effort Cardio Rate: regular rate GI Inspection: non-distended Course Orders Ordered: ED Orders 08/31/24 23:16 Urinalysis and Microscopic Stat Urine Culture Stat Discontinued Medications Cephalexin HCl (Cephalexin 250 Mg Capsule) 500 mg PO NOW ONE Stop: 08/31/24 23:55 Last Admin: 09/01/24 00:03 Dose: 500 mg Documented By: Vital Signs Vital signs: Vital Signs - 8 hr 08/31/24 23:21 09/01/24 00:08 Temperature 98.3 F 98.6 F Pulse Rate 97 H 85 Respiratory Rate 18 18 Blood Pressure 173/93 H 145/78 H Pulse Oximetry 98 98 Oxygen Delivery Method Room Air Room Air Medical Decision Making Medical Records Medical records reviewed: Yes I reviewed the patient's medical records. Lab Data Lab results reviewed: Yes I reviewed the patient's lab results. Labs: Lab Results 08/31/24 Range/Units 23:16 Urine Color Red Urine Appearance Turbid Urine pH 6.0 (4.5-8.0) Ur Specific [place] 1.020 (1.000-1.035) Urine Protein Trace H (Negative) Urine Glucose (UA) Negative (Negative) g/dL Urine Ketones Negative (NEGATIVE) Urine Occult Blood 3+ H (Negative) Urine Nitrate Negative (Negative) Urine Bilirubin Negative (NEGATIVE) Urine Urobilinogen 0.2 (0.2) E.U./dL Ur Leukocyte Esterase 2+ H (NEGATIVE) Urine RBC >100/hpf H (0-5/HPF) Urine WBC 5-10/hpf H (0-5/HPF) Ur Squamous Epith Cells 0-1 /hpf (0-5/HPF) Urine Bacteria Moderate (10-30) H (None) Ur Culture Indicated? Specimen cultured Vol Urine Centrifuged 10ml (spun) MDM Narrative Medical decision making narrative: Review of her medical record shows that about 1 year ago she had a pansensitive E coli. History and physical exam today and also urinalysis is consistent with hemorrhagic cystitis most likely caused by an infection. Will treat with antibiotics. Low suspicion for pyelo. I do feel we can hold on labs or any radiologic studies for now. First dose of antibiotics given in the emergency department a prescription was sent to the pharmacy of her choice. She was given return precautions. She expressed understanding and agreement. Discharge Plan Departure Patient Disposition: Home Clinical Impression: Hematuria, Urinary tract infection Instructions: DI for Urinary Tract Infection (UTI), DI for Hematuria Activity Restrictions/Additional Instructions: Take the antibiotics as directed. There was a urine culture pending at the time of your discharge and we will contact you if we need to change antibiotics based on this. Return to the emergency department for new or worsening symptoms Prescriptions: New cephalexin 500 mg capsule 500 mg PO BID 7 Days Qty: 14 0RF No Action bupropion HCl 150 mg tablet extended release 24 hr 150 mg PO TID Qty: 270 1RF fluconazole 150 mg tablet 150 mg PO Q3D Qty: 2 0RF cyclobenzaprine 5 mg tablet 5 mg PO BID Qty: 20 1RF Rx Instructions: Take twice daily as needed for migraines hydroxyzine pamoate 25 mg capsule 25 mg PO BID PRN (Reason: anxiety) Qty: 100 0RF Rx Instructions: may make drowsy, do not drive during therapy lisinopril 10 mg tablet 15 mg PO DAILY Qty: 135 3RF propranolol 10 mg tablet 10 mg PO DAILY PRN (Reason: anxiety) Qty: 90 3RF Referrals: Nuzhat Lundy ARNP [Primary Care Provider] - Stand Alone Forms: Patient Portal/API
[2024-09-01 00:08] VITALS: BP 145/78; PULSE 85; RESP 18; TEMP 37; O2SAT 98
== END 2024-09-01 00:09 | disposition home or self-care (01) ==
PROVIDERS: Emergency Provider Emergency Medicine; Family Provider Family Medicine; PCP Nurse Practitioner
DX: N39.0 Urinary tract infection, site not specified (principal); R31.9 Hematuria, unspecified
CPT/HCPCS: 81001; 87077; 87086; 87186; 99283

== ENCOUNTER → 2024-09-29 13:46 | Outpatient (CLI) | payer OTHER, SELFPAY | PROVIDERS: Family Provider Family Medicine; PCP Student in an Organized Health Care Education/Training Program; Visit Provider Physician Assistant Medical | DX: J02.9 Acute pharyngitis, unspecified (principal) | CPT/HCPCS: 87070 ==

== ENCOUNTER → 2024-12-30 13:45 | Outpatient (CLI) | payer OTHER, SELFPAY ==
[2024-12-30 15:36] LABS: Add Manual Diff / Slide Review NO; Basophils Absolute Auto 0 /uL (0-100); Basophils Percent Auto 0.3 % (0-2); Eosinophils Absolute Auto 200 /uL (0-450); Eosinophils Percent Auto 1.5 % (2-4); Hematocrit 40.1 % (36-46); Hemoglobin 13.5 g/dL (12.0-16.0); Lymphocytes Absolute Auto 3200 /uL (1100-4500); Lymphocytes Percent Auto 24.6 % (25-40); Mean Corpuscular HGB Conc 33.6 % (30-36); Mean Corpuscular Hemoglobin 27.3 PG (26-34); Mean Corpuscular Volume 81.2 fL (80-100); Monocytes Absolute Auto 700 /uL (0-900); Monocytes Percent Auto 5.4 % (3-14); Neutrophils Absolute Auto 8900 /uL (1500-7000); Neutrophils Percent Auto 68.2 % (50-75); Platelet Count 514 X10^3/uL (150-400); Red Blood Cell Count 4.94 X10^6/uL (4.0-5.2); Red Cell Distribution Width 13.9 % (11.6-14.8)
[2024-12-30 15:40] LABS: Alanine Aminotransferase 32 IU/L (<35); Albumin 4.6 g/dL (3.5-5.0); Albumin Globulin Ratio 1.2 (1.0-2.8); Alkaline Phosphatase 104 U/L (38-126); Aspartate Aminotransferase 31 IU/L (14-36); Bilirubin Total 0.4 mg/dL (0.2-1.3); Blood Urea Nitrogen 16 mg/dL (7-17); Calcium 9.4 mg/dL (8.4-10.2); Carbon Dioxide 26 mmol/L (22-32); Chloride 101 mmol/L (98-107); Cholesterol 168 mg/dL (140-199); Estimated Glomerular Filt Rate > 60 mL/min (>60); Globulin 3.8 g/dL (1.7-4.1); Glucose 96 mg/dL (70-100); HDL Cholesterol 40 mg/dL (40-60); HEMOLYSIS < 15 (0-50); Hemoglobin A1C% w Est Avg Glu 5.8 % (4.0-6.0); LDL Cholesterol Calculated 85 mg/dL (<100); Potassium 4.5 mmol/L (3.4-5.1); Sodium 138 mmol/L (137-145); Total Protein 8.4 g/dL (6.3-8.2); Triglycerides 215 mg/dL (35-150)
[2024-12-30 15:54] LABS: Free T3, Triiodothyronine Free 4.28 pg/mL (2.77-5.27); Free T4, Direct Thyroxine 1.23 ng/dL (0.78-2.19)
[2024-12-30 16:03] LABS: Creatinine Urine Random 185.84 mg/dL
[2024-12-30 16:08] LABS: Microalbumin Urine Random 6.5 mg/dL (0-1.6); Thyroid Stimulating Hormone 2.08 uIU/mL (0.47-4.68)
== END ==
PROVIDERS: Nurse Practitioner; Family Provider Family Medicine; PCP Student in an Organized Health Care Education/Training Program; Referring Provider Student in an Organized Health Care Education/Training Program; Visit Provider Student in an Organized Health Care Education/Training Program
DX: Z00.00 Encounter for general adult medical examination without abnormal findings (principal)
CPT/HCPCS: 36415; 80053; 80061; 82043; 82570; 83036; 84439; 84443; 84481; 85025

== ENCOUNTER → 2025-10-04 08:30 | Outpatient (CLI) | payer OTHER, SELFPAY ==
[2025-10-04 09:17] LABS: Add Manual Diff / Slide Review NO; Hematocrit 38.6 % (36-46); Hemoglobin 13.3 g/dL (12.0-16.0); Lymphocytes Absolute Auto 2700 /uL (1100-4500); Mean Corpuscular HGB Conc 34.4 % (30-36); Mean Corpuscular Hemoglobin 28.2 PG (26-34); Mean Corpuscular Volume 81.8 fL (80-100); Platelet Count 435 X10^3/uL (150-400)
[2025-10-04 09:41] LABS: Hemoglobin A1C% w Est Avg Glu 5.6 % (4.0-6.0)
[2025-10-04 09:46] LABS: Alanine Aminotransferase 36 IU/L (<35); Albumin 4.3 g/dL (3.5-5.0); Albumin Globulin Ratio 1.3 (1.0-2.8); Alkaline Phosphatase 105 U/L (38-126); Blood Urea Nitrogen 14 mg/dL (7-17); Calcium 9.4 mg/dL (8.4-10.2); Carbon Dioxide 24 mmol/L (22-32); Chloride 105 mmol/L (98-107); Cholesterol 141 mg/dL (140-199); Estimated Glomerular Filt Rate > 60 mL/min (>60); Globulin 3.2 g/dL (1.7-4.1); Glucose 121 mg/dL (70-99); HDL Cholesterol 42 mg/dL (40-60); HEMOLYSIS < 15 (0-50); Potassium 5.2 mmol/L (3.4-5.1); Sodium 138 mmol/L (137-145); Total Protein 7.5 g/dL (6.3-8.2); Triglycerides 292 mg/dL (35-150)
[2025-10-04 09:57] LABS: Follicle Stimulating Hormone 11.6 mIU/mL
[2025-10-04 10:02] LABS: Microalbumi Creatinin Ratio Ur 28.0 ug/mg CR (<30)
[2025-10-04 10:12] LABS: Thyroid Stimulating Hormone 2.50 uIU/mL (0.47-4.68)
== END ==
PROVIDERS: Family Provider Family Medicine; PCP Student in an Organized Health Care Education/Training Program; Referring Provider Student in an Organized Health Care Education/Training Program; Visit Provider Student in an Organized Health Care Education/Training Program
DX: I10 Essential (primary) hypertension (principal); E78.2 Mixed hyperlipidemia; R23.2 Flushing
CPT/HCPCS: 36415; 80053; 80061; 82043; 82570; 82672; 83001; 83036; 84443; 85025